=== PATIENT | male | born 1955 | race Caucasian/White ===

== ENCOUNTER 2025-02-01 11:06 | Observation (INO) | payer MEDICARE ==
--- NOTE | 2025-02-01 12:02 | ED ---
Lower Extremity Injury HPI - General Chief Complaint: Extremity Injury, Lower Stated Complaint: L Leg Pain Time Seen by Provider: 02/01/25 11:13 Source: patient, RN notes reviewed Mode of arrival: wheelchair Limitations: no limitations - History of Present Illness Initial Comments: 69-year-old male presents emergency department from orthopedics office for admission and further evaluation. Patient had injury on Wednesday which he states he stepped in the mud and twisted his knee. He states he has very limited movement left knee. Patient was advised that he has a quadricep tendon tear and was sent over here for admission and surgical repair. Patient had no prior knee injuries he states he does have some cardiac history but denies any complaint of chest pain shortness of breath abdominal pain or any other associated symptoms at this time. - Related Data Home Medications Medication Instructions Recorded Confirmed Aspirin EC [Ecotrin Low Dose] 81 mg PO DAILY 02/01/25 02/01/25 Cholecalciferol (Vitamin D3) 50 mcg PO DAILY 02/01/25 02/01/25 [Vitamin D3 (50 Mcg = 2000 Iu)] FLUoxetine HCL [PROzac] 20 mg PO DAILY 02/01/25 02/01/25 Ferrous Sulfate [Iron (65 MG 325 mg PO DAILY 02/01/25 02/01/25 Elemental)] Gabapentin [Neurontin] 100 mg PO BID 02/01/25 02/01/25 Glucosamine Sulfate 500 mg PO DAILY 02/01/25 02/01/25 HYDROcodone/APAP 5-325MG [[place] 1 tab PO DIRECTED PRN 02/01/25 02/01/25 5-325] Losartan [Cozaar] 50 mg PO BID 02/01/25 02/01/25 NIFEdipine XL [Procardia Xl] 30 mg PO DAILY 02/01/25 02/01/25 Rosuvastatin [Crestor] 20 mg PO DAILY 02/01/25 02/01/25 Terazosin [Hytrin] 2 mg PO HS 02/01/25 02/01/25 Allergies Allergy/AdvReac Type Severity Reaction Status Date / Time No Known Allergies Allergy Verified 02/01/25 13:15 Review of Systems ROS Statement: Those systems with pertinent positive or pertinent negative responses have been documented in the HPI. ROS Other: All systems not noted in ROS Statement are negative. Past Medical History Past Medical History: Myocardial Infarction (non Q-wave) Additional Past Medical History / Comment(s): Brain bleed 2023 Past Surgical History: Heart Catheterization With Stent Smoking Status: Never smoker Past Alcohol Use History: None Reported Past Drug Use History: None Reported General Exam Limitations: no limitations General appearance: alert, in no apparent distress Head exam: Present: atraumatic, normocephalic, normal inspection Neck exam: Present: normal inspection, full ROM. Absent: tenderness, meningismus, lymphadenopathy Respiratory exam: Present: normal lung sounds bilaterally. Absent: respiratory distress, wheezes, rales, rhonchi, stridor Cardiovascular Exam: Present: regular rate, normal rhythm, normal heart sounds. Absent: systolic murmur, diastolic murmur, rubs, gallop, clicks Extremities exam: Present: other (Left knee neurovascular intact and noted knee immobilizer) Neurological exam: Present: alert Course Vital Signs 02/01/25 11:08 Temperature 98.3 F Pulse Rate 80 Respiratory 18 Rate Blood Pressure 112/63 O2 Sat by Pulse 98 Oximetry Medical Decision Making - Medical Decision Making Was pt. sent in by a medical professional or institution (, PA, NDT INSPECTOR, urgent care, hospital, or senior living...) When possible be specific @Orthopedics Did you speak to anyone other than the patient for history (EMS, parent, family, police, friend...)? What history was obtained from this source @ -No Did you review nursing and triage notes (agree or disagree)? Why? @ -I reviewed and agree with nursing and triage notes Were old charts reviewed (outside hosp., previous admission, EMS record, old EKG, old radiological studies, urgent care reports/EKG's, senior living records)? Report findings @ -No old charts were reviewed Differential Diagnosis (chest pain, altered mental status, abdominal pain women, abdominal pain men, vaginal bleeding, weakness, fever, dyspnea, syncope, headache, dizziness, GI bleed, back pain, seizure, CVA, palpatations, mental health, musculoskeletal)? @ -[Differential Musculoskeletal Muscular strain, contusion, ligament sprain, fracture, arthritis, septic arthr itis, bursitis, cellulitis, muscle spasm, nerve compression, DVT, arterial occlusion, herpes zoster, electrolyte abnormality, tumor.... This is not meant to be in all inclusive list EKG interpreted by me (3pts min.). @ -As above X-rays interpreted by me (1pt min.). @ -X-ray shows no acute cardiopulmonary process. CT interpreted by me (1pt min.). @ -None done U/S interpreted by me (1pt. min.). @ -None done What testing was considered but not performed or refused? (CT, X-rays, U/S, labs)? Why? @ -None What meds were considered but not given or refused? Why? @ -None Did you discuss the management of the patient with other professionals (professionals i.e. , PA, NDT INSPECTOR, lab, RT, psych nurse, social work instructor, head silverman, teacher, multisensor intelligence officer, case management social worker)? Give summary @ -Orthopedics for admission will consult medicine Was smoking cessation discussed for >3mins.? @ -No Was critical care preformed (if so, how long)? @ -No Were there social determinants of health that impacted care today? How? ( Homelessness, low income, unemployed, alcoholism, drug addiction, transportation, low edu. Level, literacy, decrease access to med. care, fci, rehab)? @ -No Was there de-escalation of care discussed even if they declined (Discuss DNR or withdrawal of care, Hospice)? DNR status @ -No What co-morbidities impacted this encounter? (DM, HTN, Smoking, COPD, CAD, Cancer, CVA, ARF, Chemo, Hep., AIDS, mental health diagnosis, sleep apnea, morbid obesity)? @ -None Was patient admitted / discharged? Hospital course, mention meds given and route, prescriptions, significant lab abnormalities, going to OR and other pertinent info. @ -[Admitted to orthopedics for MRI, left quadricep tendon repair Undiagnosed new problem with uncertain prognosis? @ -No Drug Therapy requiring intensive monitoring for toxicity (Heparin, Nitro, Insulin, Cardizem)? @ -No Were any procedures done? @ -No Diagnosis/symptom? @ -Left quadricep tendon rupture Acute, or Chronic, or Acute on Chronic? @ -Acute Uncomplicated (without systemic symptoms) or Complicated (systemic symptoms)? @ -Uncomplicated Side effects of treatment? @ -No Exacerbation, Progression, or Severe Exacerbation? @ -No Poses a threat to life or bodily function? How? (Chest pain, USA, LA, pneumonia, PE, COPD, DKA, ARF, appy, cholecystitis, CVA, Diverticulitis, Homicidal, Suicidal, threat to staff... and all critical care pts) @ -No - Lab Data Result diagrams: 02/01/25 12:22 02/01/25 12:22 Lab Results 02/01/25 02/01/25 02/01/25 Range/Units 12:22 12:22 12:22 WBC 10.1 (3.8-10.6) k/uL RBC 3.32 L (4.30-5.90) m/uL Hgb 10.5 L (13.0-17.5) gm/dL Hct 31.6 L (39.0-53.0) % MCV 95.1 (80.0-100.0) fL MCH 31.7 (25.0-35.0) pg MCHC 33.4 (31.0-37.0) g/dL RDW 12.8 (11.5-15.5) % Plt Count 314 (150-450) k/uL MPV 7.7 Neutrophils % 80 % Lymphocytes % 12 % Monocytes % 6 % Eosinophils % 1 % Basophils % 0 % Neutrophils # 8.0 H (1.3-7.7) k/uL Lymphocytes # 1.2 (1.0-4.8) k/uL Monocytes # 0.6 (0-1.0) k/uL Eosinophils # 0.2 (0-0.7) k/uL Basophils # 0.0 (0-0.2) k/uL PT 10.7 (10.0-12.5) sec INR 1.0 (<1.2) APTT 23.0 (22.0-30.0) sec Sodium 136 L (137-145) mmol/L Potassium 4.2 (3.5-5.1) mmol/L Chloride 102 (98-107) mmol/L Carbon Dioxide 23 (22-30) mmol/L Anion Gap 11 mmol/L BUN 24 H (9-20) mg/dL Creatinine 0.82 (0.66-1.25) mg/dL Est GFR (CKD-EPI)AfAm >90 (>60 ml/min/1.73 sqM) Est GFR (CKD-EPI)NonAf >90 (>60 ml/min/1.73 sqM) Glucose 157 H (74-99) mg/dL Calcium 8.6 (8.4-10.2) mg/dL Magnesium 2.3 (1.6-2.3) mg/dL Total Bilirubin 0.7 (0.2-1.3) mg/dL AST 24 (17-59) U/L ALT 24 (4-49) U/L Alkaline Phosphatase 62 (38-126) U/L Total Protein 6.2 L (6.3-8.2) g/dL Albumin 3.8 (3.5-5.0) g/dL - EKG Data -: EKG Interpreted by Me EKG Comments: @12: 12 sinus rhythm rate of 67 [place] 162 QRS 116 QT/QTc 405/420 Disposition Clinical Impression: Quadriceps tendon rupture Disposition: ADMITTED IP TO THIS HOSP Condition: Fair Referrals: Hay Saunders MD [Primary Care Provider] - 1-2 days Time of Disposition: 14:28
[2025-02-01 12:32] LABS: Basophils % (A) 0 %; Eosinophils # (A) 0.2 k/uL (0-0.7); Eosinophils % (A) 1 %; HCT 31.6 % (39.0-53.0); HGB 10.5 gm/dL (13.0-17.5); Lymphocytes # (A) 1.2 k/uL (1.0-4.8); Lymphocytes % (A) 12 %; MCH 31.7 pg (25.0-35.0); MCHC 33.4 g/dL (31.0-37.0); MCV 95.1 fL (80.0-100.0); Mean Platelet Volume 7.7; Monocytes # (A) 0.6 k/uL (0-1.0); Monocytes % (A) 6 %; Neutrophils % (A) 80 %; Platelet Count 314 k/uL (150-450); RBC 3.32 m/uL (4.30-5.90); RDW 12.8 % (11.5-15.5); WBC 10.1 k/uL (3.8-10.6)
[2025-02-01] MEDS ORDERED: ACETAMINOPHEN TAB 325 MG TAB PO PRN (12:38)
[2025-02-01] MEDS ORDERED: NALOXONE 0.4 MG/ML 1 ML VIAL IV PRN (12:38)
[2025-02-01 12:51] LABS: ALT 24 U/L (4-49); AST 24 U/L (17-59); African American GFR (CKD) >90 (>60 ml/min/1.73 sqM); Albumin 3.8 g/dL (3.5-5.0); Alkaline Phosphatase 62 U/L (38-126); Anion Gap 11 mmol/L; Blood Urea Nitrogen 24 mg/dL (9-20); Calcium 8.6 mg/dL (8.4-10.2); Carbon Dioxide 23 mmol/L (22-30); Chloride 102 mmol/L (98-107); Glucose 157 mg/dL (74-99); Magnesium 2.3 mg/dL (1.6-2.3); Non-African American GFR(CKD) >90 (>60 ml/min/1.73 sqM); Potassium 4.2 mmol/L (3.5-5.1); Sodium 136 mmol/L (137-145); Total Bilirubin 0.7 mg/dL (0.2-1.3); Total Protein 6.2 g/dL (6.3-8.2)
[2025-02-01 12:52] LABS: Prothrombin Time 10.7 sec (10.0-12.5)
--- NOTE | 2025-02-01 14:51 | XR ---
EXAMINATION TYPE: XR chest 1V DATE OF EXAM: 02/01/2025 COMPARISON: NONE CLINICAL INDICATION: Male, 69 years old with history of preop for torn quadriceps; TECHNIQUE: Single frontal view of the chest is obtained. FINDINGS: Heart borderline in size. Loop recorder device projects along the left heart margin. Aorta and pulmon renetta vasculature within normal limits. No consolidation or pleural effusion. IMPRESSION: Borderline heart size. Loop recorder device noted. No definite acute process. [facility], , 02/01/2025 2:48 PM
[2025-02-01] MEDS: PANTOPRAZOLE 40 MG TABLET PO SCH (16:18)
[2025-02-01] MEDS: LOSARTAN 50 MG TAB PO SCH (22:26)
[2025-02-01] MEDS: GABAPENTIN 100 MG CAP PO SCH (22:26)
[2025-02-01] MEDS: DOXAZOSIN 2 MG TAB PO SCH (22:26)
[2025-02-01] MEDS: HEPARIN SODIUM,PORCINE 5,000 UNIT/ML 1 ML VIAL SQ SCH (22:27)
[2025-02-01] MEDS: HYDROcodone/APAP 5-325MG 1 EACH TAB PO PRN (22:34)
--- NOTE | 2025-02-01 23:46 | CONS ---
CONSULTATION REASON FOR CONSULTATION: Advice regarding myocardial infarction and other medical issues, requested by Orthopedics. HISTORY OF PRESENT ILLNESS: This is a 69-year-old gentleman with a past medical history of myocardial infarction, history of CAD stent, being followed by Dr. Hay Saunders in the outpatient setting, was recently moved to [facility] from [place]. The patient was followed by [facility] elsewhere in 2013. The patient had a stress test about 6 months before, the patient passed according to him. The patient also had history of fall and as well as brain bleed managed conservatively in [facility]. The patient also had a seizure during that time. Currently, the patient fell and had left quadriceps tendon rupture. The patient is being evaluated for surgery at this time. There is no history of any fever, rigors, or chills at this time. PAST MEDICAL HISTORY: History of CAD stent, history of brain bleed in 2023. Rest of the history and rest of the chart are also reviewed. HOME MEDICATIONS: Reviewed include glucosamine. Dose and rest of medications reviewed. ALLERGIES: None. FAMILY HISTORY: No history of heart disease or strokes in the family. SOCIAL HISTORY: No history of smoking or alcohol intake. REVIEW OF SYSTEMS: A 14-point review of systems is negative except as mentioned earlier. PHYSICAL EXAMINATION: VITAL SIGNS: Pulse is 73, blood pressure 112/67, respirations 16. HEENT: Conjunctivae normal. NECK: No JVD. CARDIOVASCULAR: S1, S2. RESPIRATIONS: Breath sounds diminished at the bases. No rhonchi. No crackles. ABDOMEN: Soft. LEGS: Status post left leg quadriceps tendon fracture. NERVOUS SYSTEM: Nonfocal. LABORATORY DATA: Hemoglobin 10.2. Rest of the labs are noted. ASSESSMENT: 1. Status post left quadriceps tendon rupture. 2. History of brain bleed in 2023, treated conservatively after fall. 3. History of coronary artery disease stent. 4. Hypertension. 5. Hyperlipidemia. RECOMMENDATIONS: This is a 69-year-old gentleman, who presented with quadriceps tendon repair. The patient is currently medically stable. I would clear the patient for surgery. Resume the home medications once they are confirmed and available. Otherwise, we will follow the patient closely with you. MMODL / IJN: [id number] /
[2025-02-02] MEDS: ASPIRIN 81 MG PO SCH ×2 (09:13→22:58)
[2025-02-02] MEDS: CHOLECALCIFEROL 25 MCG (1000 IU) TABLET PO SCH (09:19)
[2025-02-02] MEDS: FERROUS SULFATE 325 MG TAB PO SCH (09:20)
[2025-02-02] MEDS: ATORVASTATIN 40 MG TAB PO SCH (09:20)
[2025-02-02] MEDS: FLUoxetine HCL 20 MG CAP PO SCH (09:20)
[2025-02-02] MEDS: NIFEdipine XL 30 MG TAB.ER.24 PO SCH (09:25)
--- NOTE | 2025-02-02 13:57 | MR ---
EXAMINATION TYPE: MR knee LT wo con DATE OF EXAM: 02/02/2025 1:26 PM COMPARISON: None. CLINICAL INDICATION: Male, 69 years old with history of rule out quadriceps tendon tear, Lt knee pain /injury, r/o quadricep tendon tear TECHNIQUE: Multi planar, multi sequence imaging was performed of the knee including: Triplane proton density fat-saturated images and T1-weighted imaging. No Gadolinium was given. IV Contrast: mL (none if empty) FINDINGS: Medial meniscus: Intact Medial femorotibial cartilage: Grade-II chondromalacia. Medial collateral ligament: Intact Lateral meniscus: Intact Lateral femorotibial cartilage: Grade-II chondromalacia. Lateral collateral ligament complex: Intact Patellofemoral alignment: Normal Patellofemoral cartilage: Intact Extensor mechanism: There is a complete tear of the quadriceps tendon with retraction up to 2.6 cm. E xtensive edema and hematoma as described below. Joint/bursal fluid: There is a small joint effusion. Muscles/tendons: The patellar tendon, quadriceps tendon, IT band, pes anserinus tendons, semimembranosus tendon, popliteus tendon, and biceps femoris tendon are all within normal limits. Bone marrow: Subchondral cystic change of the patella along the medial aspect unclear if this is sequela of degeneration or acute course of tendon rupture. Anterior cruciate ligament: Intact. Posterior cruciate ligament: Intact. Soft tissues: There is a hematoma layering along the anterior leg measuring at least 7.8 x 8.0 x 1.3cm thinning of the [id number] superiorly. Subcutaneous edema throughout the tissues of the leg likely secondary to quadriceps tendon rupture. Small Liriano cyst is present. IMPRESSION: 1. Complete tear of the quadriceps tendon with retraction up to 2.6 cm. There is associated hematoma present. 2. ACL and PCL MCL and LCL are intact. [facility], , 02/02/2025 1:55 PM
[2025-02-02] MEDS: LACTATED RINGERS 1,000 ML BAG IV STA (15:14)
[2025-02-02] MEDS: DEXAMETHASONE SOD PHOSPHATE 4 MG/ML 1 ML VIAL IVP STA (15:22)
[2025-02-02] MEDS: ONDANSETRON 4 MG/2 ML VIAL IVP STA (15:23)
[2025-02-02] MEDS: IV FLUID CONTINUATION 1,000 ML IV ONE ×2 (15:33→18:00)
[2025-02-02] MEDS ORDERED: fentaNYL (PF) 50 MCG/ML 2 ML AMP ONE (15:50)
[2025-02-02] MEDS ORDERED: PHENYLEPHRINE 10 MG/ML VIAL ONE (15:50)
[2025-02-02] MEDS ORDERED: NEOSTIGMINE 1 MG/ML 10 ML VIAL ONE (15:50)
[2025-02-02] MEDS ORDERED: GLYCOPYRROLATE 0.2 MG/ML 2 ML VIAL ONE (15:50)
[2025-02-02] MEDS ORDERED: PROPOFOL 10 MG/ML 20 ML VIAL IV ONE (15:50)
[2025-02-02] MEDS ORDERED: LIDOCAINE 1% INJ 10MG/ML (20 ML MDV) ONE (15:50)
[2025-02-02] MEDS ORDERED: MIDAZOLAM 2 MG/2 ML VIAL ONE (15:50)
[2025-02-02] MEDS ORDERED: SUCCINYLCHOLINE CHLORIDE 200 MG/10 ML VIAL IV ONE (15:50)
[2025-02-02] MEDS ORDERED: ROCURONIUM 10 MG/ML (5 ML VIAL) IV ONE (15:50)
--- NOTE | 2025-02-02 15:54 | P.HPOR ---
History of Present Illness H&P Date: 02/02/25 The patient is a very pleasant 69-year-old male with a medical history significant for neuropathy who sustained an injury about a week ago in a field when he was using a metal detector resulting in immediate pain and an inability to walk on his left leg. The patient crawled and was picked up by a car. He presented to an outside ER where a CT scan read a possible quadriceps tendon tear. The patient presented to my office over a week out from his injury yesterday. He was having a difficult time ambulating and felt unsafe at home. The patient was referred to the ER for a urgent MRI and likely repair of a presumed quadriceps tendon rupture. The patient denies pre-existing pain in his knee. Past Medical History Past Medical History: Hyperlipidemia, Hypertension, Myocardial Infarction (non Q-wave), Sleep Apnea/CPAP/BIPAP Additional Past Medical History / Comment(s): Brain bleed from fall in 2023, had seizure during brain bleed hospitalization. [place] 2019, neuropathy, anxiety Last Myocardial Infarction Date:: 2019 History of Any Multi-Drug Resistant Organisms: None Reported Past Surgical History: Heart Catheterization With Stent Additional Past Surgical History / Comment(s): 4 cardiac stents, loop recorder fall of 2023 Past Anesthesia/Blood Transfusion Reactions: Postoperative Nausea & Vomiting (PONV) Date of Last Stent Placement:: 2022 Past Psychological History: Anxiety Smoking Status: Never smoker Past Alcohol Use History: None Reported Past Drug Use History: None Reported - Past Family History Father Additional Family Medical History / Comment(s): leukemia Mother Family Medical History: Hypertension Medications and Allergies Home Medications Medication Instructions Recorded Confirmed Type Aspirin EC [Ecotrin Low Dose] 81 mg PO DAILY 02/01/25 02/01/25 History Cholecalciferol (Vitamin D3) 50 mcg PO DAILY 02/01/25 02/01/25 History [Vitamin D3 (50 Mcg = 2000 Iu)] FLUoxetine HCL [PROzac] 20 mg PO DAILY 02/01/25 02/01/25 History Ferrous Sulfate [Iron (65 MG 325 mg PO DAILY 02/01/25 02/01/25 History Elemental)] Gabapentin [Neurontin] 100 mg PO BID 02/01/25 02/01/25 History Glucosamine Sulfate 500 mg PO DAILY 02/01/25 02/01/25 History HYDROcodone/APAP 5-325MG [[place] 1 tab PO DIRECTED PRN 02/01/25 02/01/25 History 5-325] Losartan [Cozaar] 50 mg PO BID 02/01/25 02/01/25 History NIFEdipine XL [Procardia Xl] 30 mg PO DAILY 02/01/25 02/01/25 History Rosuvastatin [Crestor] 20 mg PO DAILY 02/01/25 02/01/25 History Terazosin [Hytrin] 2 mg PO HS 02/01/25 02/01/25 History Allergies Allergy/AdvReac Type Severity Reaction Status Date / Time No Known Allergies Allergy Verified 02/01/25 13:15 Physical Examination The patient is resting in a comfortable position on the [facility]. He is alert and able to answer questions. His head is normocephalic and atraumatic. He demonstrates nonlabored breathing with symmetric chest expansion. His abdomen is mildly obese but nontender. He has palpable peripheral pulses. His bilateral upper extremities and right lower extremity are without deformity. A focused exam of the left lower extremity was conducted. On inspection there is swelling and ecchymosis diffusely over the anterior aspect of the knee. There is a palpable gap over the superior pole of the patella. He is unable to perform a straight leg raise. He has no pain with passive range of motion of the hip or ankle. There is pain with attempts at passive range of motion of the knee. His thigh and calf are soft. He has a palpable dorsalis pedis pulse. He has slightly decreased sensation globally throughout the foot consistent with neuropathy. He is able to actively plantarflex and dorsiflex his ankle and his toes. Results MRI of the left knee shows a complete quadriceps tendon avulsion off the superior pole of the patella with several centimeters of proximal retraction. - Labs Labs: H & H 02/01/25 Range/Units 12:22 Hgb 10.5 L (13.0-17.5) gm/dL Hct 31.6 L (39.0-53.0) % Coagulation 02/01/25 Range/Units 12:22 INR 1.0 (<1.2) Result Diagrams: 02/01/25 12:22 02/01/25 12:22 Assessment and Plan Assessment: Left quadriceps tendon rupture Peripheral neuropathy Plan: The patient required admission to the hospital for an urgent MRI and pain management due to difficulty ambulating and feeling unsafe at home. His MRI showed a complete rupture of the quadriceps tendon. I met with both the patient and his to discuss treatment. It was my recommendation to perform an open repair of the quadriceps tendon. We discussed the procedure and recovery at length. The patient understands the potential risks and complications of surgery including but certainly not limited to risk of infection, delayed wound healing, damage to blood vessels or nerves, failure of the repair, rerupture, stiffness, instability, DVT, other medical complications, and possibly loss of life or limb. The patient and his voiced their understanding that while these are the most common complications there are other less common complications possible. They provided their consent to go forward with surgery. Time with Patient: Greater than 30
[2025-02-02] MEDS: ROPIVACAINE 5 MG/ML 30 ML VIAL MISCELLANE ONE ×2 (16:32→16:58)
[2025-02-02] MEDS ORDERED: NALOXONE 0.4 MG/ML 1 ML VIAL IV PRN (17:13)
[2025-02-02] MEDS ORDERED: diazePAM 5 MG TAB PO PRN (17:13)
[2025-02-02] MEDS ORDERED: bisacodyL 10 MG SUPP RECTAL PRN (17:13)
[2025-02-02] MEDS ORDERED: HYDROmorphone 0.5 MG/0.5 ML SYRINGE IVP PRN ×2 (17:13)
[2025-02-02] MEDS ORDERED: MAGNESIUM HYDROXIDE 2,400 MG/30 ML CUP PO PRN (17:13)
[2025-02-02] MEDS ORDERED: TEMAZEPAM 15 MG CAP PO PRN (17:13)
[2025-02-02] MEDS ORDERED: NA PHOS,M-B/NA PHOS,DI-BA 133 ML ENEMA RECTAL PRN (17:13)
--- NOTE | 2025-02-02 17:14 | P.OP ---
Date of Procedure: 02/02/25 Preoperative Diagnosis: 1. Left knee quadriceps tendon rupture 2. Peripheral neuropathy Postoperative Diagnosis: Same Procedure(s) Performed: Open repair left quadriceps tendon Anesthesia: JARAD, local Surgeon: Pavel Monroy Emergency Doctor #1: Anand Monique Estimated Blood Loss (ml): 100 IV fluids (ml): 800 Pathology: none sent Condition: stable Disposition: PACU Indications for Procedure: The patient is a very pleasant 69-year-old male with a medical history significant for neuropathy who sustained an isolated injury to his left knee about a week ago. He was admitted to the hospital due to difficulty ambulating and an MRI was obtained which showed a complete full-thickness quadriceps tendon rupture off of the superior pole of the patella. He had a palpable gap and his extensor mechanism was disrupted. I met with the patient and his to discuss treatment. I recommended open repair of his quadriceps tendon tear. We discussed the potential risks and complications of surgery at length including but certainly not limited to risks from anesthesia, superficial infection, deep infection, damage to local blood vessels or nerves, delayed wound healing, failure of the repair, rerupture, stiffness, instability, extensor lag, need for further procedures, DVT, PE, other medical complications, and possibly loss of life or limb. The patient provided his verbal and written consent to go forward with surgery. Operative Findings: Complete full-thickness rupture of the quadriceps tendon up the superior pole of the patella and tears of the medial and lateral patellar retinaculum. Pre- existing tendinitis of the quadriceps tendon Description of Procedure: The patient was identified in preoperative holding and the correct left leg was marked with my initials. I reviewed the consent form with the patient and his . All their questions were answered. The patient was then brought back to the operating room by anesthesia. He was positioned on the OR table where general anesthetic and preoperative antibiotics were given. A bump was placed on the left buttock internally rotating the leg to neutral. A tourniquet was applied to the proximal aspect of the left thigh but was not inflated. The contralateral leg was secured to the OR table with foam and tape. The left arm was draped across the chest with a pillow and tape. The left leg was then isolated with a nonsterile drape and a presurgical scrub with a chlorhexidine scrub brush was performed. The left leg was then prepped and draped in the standard sterile fashion. Prior to starting surgery a timeout was performed identifying the correct patient, operative extremity, and procedure. I began by making a straight anterior incision over the knee. The incision started 4 fingerbreadths above the patella and extended just distal to the inferior pole of the patella. Skin incision was made with a scalpel and I dissected sharply down through the subcutaneous tissue to the first fascial layer. Immediately upon entering the first fascial layer there was a large hematoma and a complete rupture of the quadriceps tendon and both medial and lateral retinaculum were identified. The wound and joint were thoroughly irrigated to remove all consolidating hematoma and debris. Once the joint and wound was thoroughly irrigated the tendon was inspected and found to have adequate tissue for repair but there did appear to be some pre-existing tendinitis. Using #5 FiberWire and a Krakw type stitch a medial and lateral repair creating 4 strands was performed. The superior pole of the patella was roughened with a rongeur to facilitate a bleeding bed for healing. At this point the Arthrex drill for a 4.5 swivel lock anchor was placed medially and laterally at the superior pole of the patella. A tap was used in both the medial and lateral rows. The 2 lateral sutures were then pulled through the eyelet of the 4.5 swivel lock anchor which was introduced into the drill hole and gently tapped into place. The screw was fully engaged generating excellent purchase. This was repeated medially. This created a robust repair. The overlying extensor mechanism was also repaired with interrupted sutures through the sutures. The medial and lateral retinaculum were repaired with multiple interrupted 0 Vicryl [id number] sutures. This created a robust repair. The wound was then thoroughly irrigated and closed in layers. A sterile dressing over the anterior aspect of the knee was placed. At the conclusion of surgery all instrument, sponge, and sharp counts were correct. An Anthony wrap followed by a knee immobilizer was placed. The patient was then carefully transported to the recovery room having tolerated the procedure well. Anand Monique PA-C was required as a skilled help desk assistant due to the complexity of surgery for patient positioning, draping, exposure, retraction, closure of wound, and application of dressing. Plan: The patient can weight-bear as tolerated on his operative extremity. He will be in a knee immobilizer keeping his leg straight at all times. We will order a hinged knee brace which is to be locked in extension for 4 weeks. The brace is to remain on at all times except for hygiene. 2 doses of postoperative antibiotics. DVT prophylaxis with aspirin 81 mg twice daily. Appreciate internal medicine's assistance with perioperative medical management. The patient can discharge home tomorrow if he passes physical therapy. He will need follow-up in the office in 2 weeks for a wound check only.
[2025-02-02] MEDS: HYDROmorphone 0.5 MG/0.5 ML SYRINGE IVP PRN ×3 (17:51→18:13)
[2025-02-02] MEDS: ONDANSETRON 4 MG/2 ML VIAL IVP PRN (18:53)
[2025-02-02] MEDS: SODIUM CHLORIDE 0.9% 1,000 ML IV SCH (18:54)
[2025-02-02] MEDS: SENNOSIDES-DOCUSATE SODIUM 1 EACH TAB PO SCH (22:58)
--- NOTE | 2025-02-02 23:50 | PN ---
PROGRESS NOTE DATE OF SERVICE: 02/02/2025 SUBJECTIVE: This is a 69-year-old gentleman with a past medical history of myocardial infarction, who was admitted for left quadriceps tendon rupture and he is slated to have surgery today. No chest pain. No palpitation. PHYSICAL EXAMINATION: VITAL SIGNS: Pulse is 64, blood pressure 120/66, respirations 18. CHEST: Clear to auscultation. CARDIOVASCULAR: S1, S2. ABDOMEN: Left leg is painful and tender, especially in the knee joint. Movements are limited. LABORATORY DATA: Sodium 136. ASSESSMENT: 1. Status post left quadriceps tendon rupture. 2. History of brain bleed in 2023, treated conservatively after fall. 3. History of coronary artery disease with stent. 4. Hypertension. 5. Hyperlipidemia. RECOMMENDATIONS AND DISCUSSION: Recommended to continue with current management, continue with symptomatic treatment, and follow with Surgery. The patient is cleared for surgery. DVT prophylaxis. Recommended repeat labs in the morning. We will closely monitor. The patient has multiple medical issues, but however, stable at this time, cleared for surgery. Prognosis is guarded. Further recommendations to follow. MMODL / IJN: [id number] /
[2025-02-03] MEDS: diazePAM 5 MG TAB PO PRN (01:16)
[2025-02-03 02:06] VITALS: RESP 18
[2025-02-03] MEDS: HYDROcodone/APAP 10-325MG 1 EACH TAB PO PRN (04:05)
[2025-02-03 07:46] VITALS: BP 111/56; PULSE 48; TEMP 98
--- NOTE | 2025-02-03 08:31 | P.DS ---
Providers Date of admission: 02/01/25 13:00 Attending physician: Pavel Monroy Consults: 02/01/25 12:38 Consult Physician Urgent Consulting Provider: Fan Roger Consult Reason/Comments: medical management Do you want consulting provider notified?: Yes Primary care physician: Hay Saunders MD Hospital Course: The patient is a very pleasant 69-year-old male who was admitted this past with an acute left quadriceps tendon tear. He had an MRI yesterday which showed a complete full-thickness and retracted distal quadriceps tendon tear. He underwent surgical fixation yesterday. Following an uncomplicated surgery he was transferred to the orthopedic floor. He received 2 doses of postoperative antibiotics. He was started on aspirin for DVT prophylaxis. He was seen on postoperative day #1 was doing relatively well although he did have some pain in his left knee. The Anthony wrap and Webril were taken down and his dressing was intact. A hinged knee immobilizer locked in extension was ordered and dispensed. Internal medicine assisted with his perioperative medical issues. He worked with physical therapy. He did well and was ultimately cleared for discharge home. Patient Condition at Discharge: Fair Plan - Discharge Summary Discharge Rx Participant: No New Discharge Prescriptions: New Aspirin 81 mg PO BID #60 tab Docusate [Colace] 100 mg PO BID #30 capsule HYDROcodone/APAP 5-325MG [[place] 5-325] 1 - 2 tab PO Q6HR PRN #24 tab PRN Reason: Pain Ondansetron [Zofran] 4 mg PO Q8HR PRN #20 tab PRN Reason: Nausea No Action Ferrous Sulfate [Iron (65 MG Elemental)] 325 mg PO DAILY Cholecalciferol (Vitamin D3) [Vitamin D3 (50 Mcg = 2000 Iu)] 50 mcg PO DAILY Rosuvastatin [Crestor] 20 mg PO DAILY Aspirin EC [Ecotrin Low Dose] 81 mg PO DAILY Terazosin [Hytrin] 2 mg PO HS Losartan [Cozaar] 50 mg PO BID Glucosamine Sulfate 500 mg PO DAILY Gabapentin [Neurontin] 100 mg PO BID FLUoxetine HCL [PROzac] 20 mg PO DAILY NIFEdipine XL [Procardia Xl] 30 mg PO DAILY HYDROcodone/APAP 5-325MG [[place] 5-325] 1 tab PO DIRECTED PRN PRN Reason: Pain Discharge Medication List Aspirin EC [Ecotrin Low Dose] 81 mg PO DAILY 02/01/25 [History] Cholecalciferol (Vitamin D3) [Vitamin D3 (50 Mcg = 2000 Iu)] 50 mcg PO DAILY 02/01/25 [History] FLUoxetine HCL [PROzac] 20 mg PO DAILY 02/01/25 [History] Ferrous Sulfate [Iron (65 MG Elemental)] 325 mg PO DAILY 02/01/25 [History] Gabapentin [Neurontin] 100 mg PO BID 02/01/25 [History] Glucosamine Sulfate 500 mg PO DAILY 02/01/25 [History] HYDROcodone/APAP 5-325MG [[place] 5-325] 1 tab PO DIRECTED PRN 02/01/25 [History] Losartan [Cozaar] 50 mg PO BID 02/01/25 [History] NIFEdipine XL [Procardia Xl] 30 mg PO DAILY 02/01/25 [History] Rosuvastatin [Crestor] 20 mg PO DAILY 02/01/25 [History] Terazosin [Hytrin] 2 mg PO HS 02/01/25 [History] Aspirin 81 mg PO BID #60 tab 02/03/25 [Rx] Docusate [Colace] 100 mg PO BID #30 capsule 02/03/25 [Rx] HYDROcodone/APAP 5-325MG [[place] 5-325] 1 - 2 tab PO Q6HR PRN #24 tab 02/03/25 [Rx] Ondansetron [Zofran] 4 mg PO Q8HR PRN #20 tab 02/03/25 [Rx] Follow up Appointment(s)/Referral(s): Hay Saunders MD [Primary Care Provider] - 1-2 days Pavel Monroy MD [Medical Doctor] - 2 Weeks Activity/Diet/Wound Care/Special Instructions: 1. Weightbearing as tolerated on your left lower extremity using crutches or walker 2. Keep knee straight at all times, do not bend. Wear hinged knee brace locked in extension at all times except for hygiene 3. Leave surgical dressing in place for 2 weeks. We will change your dressing at your first postoperative appointment. 4. Take pain medications as prescribed. While taking [place] for pain take a stool softener and drink lots of water. 5. Aspirin 81 mg twice daily for DVT prophylaxis Discharge Disposition: HOME WITH HOME HEALTH SERVICES
[2025-02-03 09:41] LABS: Basophils # (A) 0.02 X 10*3/uL (0.00-0.10); Basophils % (A) 0.2 %; Eosinophils # (A) 0.03 X 10*3/uL (0.04-0.35); Eosinophils % (A) 0.3 %; HCT 27.9 % (39.6-50.0); HGB 9.2 g/dL (13.0-17.0); Lymphocytes # (A) 0.98 X 10*3/uL (0.90-5.00); Lymphocytes % (A) 8.4 %; MCH 31.9 pg (27.0-32.0); MCV 96.9 FL (80.0-97.0); Mean Platelet Volume 9.6 FL (9.5-12.2); Monocytes % (A) 9.4 %; NRBC Per 100 WBC 0 X 10*3/uL (0.00-0.01); Neutrophils # (A) 9.49 X 10*3/uL (1.80-7.70); Neutrophils % (A) 81.4 %; Platelet Count 330 X 10*3/uL (140-440); RBC 2.88 X 10*6/uL (4.40-5.60); RDW 13.2 % (11.5-14.5); WBC 11.66 X 10*3/uL (4.50-10.00)
[2025-02-03 09:55] LABS: ALT 22 U/L (10-49); AST 20 U/L (14-35); Albumin 3.5 g/dL (3.8-4.9); Albumin/Globulin Ratio 1.59 Ratio (1.60-3.17); Alkaline Phosphatase 68 U/L (41-126); Blood Urea Nitrogen 14.4 mg/dL (9.0-27.0); Calcium 8.2 mg/dL (8.7-10.3); Carbon Dioxide 24.3 mmol/L (21.6-31.8); Chloride 102 mmol/L (96-109); Globulin 2.2 g/dL (1.6-3.3); Glucose 155 mg/dL (70-110); Potassium 4.7 mmol/L (3.5-5.5); Sodium 136 mmol/L (135-145); Total Bilirubin 0.4 mg/dL (0.3-1.2); Total Protein 5.7 g/dL (6.2-8.2)
--- NOTE | 2025-02-04 01:22 | PN ---
PROGRESS NOTE DATE OF SERVICE: 02/03/2025 SUBJECTIVE: This is a 69-year-old gentleman, who was admitted with quadriceps tendon rupture, underwent open repair of the left quadriceps tendon. No chest pain. No palpitations. No fever. PHYSICAL EXAMINATION: VITAL SIGNS: Pulse is 48, blood pressure 111/53, respirations 18. CHEST: Clear to auscultation. CARDIOVASCULAR: S1 and S2. ABDOMEN: Soft. LEGS: Status post surgery. LABORATORY DATA: Reviewed. ASSESSMENT: 1. Left quadriceps tendon rupture, status post repair. 2. History of brain bleed in 2023, treated conservatively after a fall. 3. History of coronary artery disease with stent. 4. Hypertension. 5. Hyperlipidemia. RECOMMENDATIONS: Recommended to continue with current management, continue with symptomatic treatment. Closely follow with primary physician after discharge. DVT prophylaxis. Incentive spirometry. Rest of the recommendations per Orthopedic Surgery. Further recommendations to follow. MMODL / IJN: [id number] /
== END 2025-02-03 14:26 | disposition home health service (06) ==
LOC: EC 11:06 → 4SSUR 13:00
PROVIDERS: ADMIT Orthopaedic Surgery; ATTEND Orthopaedic Surgery
DX: S76.112A Strain of left quadriceps muscle, fascia and tendon, initial encounter (principal); S83.412A Sprain of medial collateral ligament of left knee, initial encounter; S83.422A Sprain of lateral collateral ligament of left knee, initial encounter; X50.1XXA Overexertion from prolonged static or awkward postures, initial encounter; G62.9 Polyneuropathy, unspecified; R26.2 Difficulty in walking, not elsewhere classified; I25.10 Atherosclerotic heart disease of native coronary artery without angina pectoris; I10 Essential (primary) hypertension; E78.5 Hyperlipidemia, unspecified; G47.30 Sleep apnea, unspecified; F41.9 Anxiety disorder, unspecified; I25.2 Old myocardial infarction; Z95.5 Presence of coronary angioplasty implant and graft; Z79.82 Long term (current) use of aspirin; Z79.899 Other long term (current) drug therapy
CPT/HCPCS: 96376 ×2; 96365; 96366; 96372 ×3; 96375; 99284; 36415; 93005; 97530; 97162; 80053 ×2; 83735; 85025 ×2; 85610; 85730; 71045; 73721; 27385; 27380; G0378 ×3; L1830; C1713 ×2; J2250; J0330; J1644 ×3; J1100; J2710; J0690 ×2; J2405; J2003; J3010; J2795; J2704; J1171 ×2; J2371; J1596